=== PATIENT | female | born 1995 ===

== ENCOUNTER 2024-01-09 07:20 | Emergency (ER) | payer OTHER ==
[~2024-01-09] VITALS: Ht 154.9 cm; Wt 59.9 kg
[2024-01-09] MEDS ORDERED: ONDA4ODT MM (07:35)
[2024-01-09] MEDS ORDERED: Ondansetron HCl 2 MG / ML 2ML Vial IV PRN (07:40)
[2024-01-09 08:02] LABS: BASOPHILS ABSOLUTE AUTO 0.16 K/mm3 (0.00-0.23); BASOPHILS PERCENT AUTO 1 % (0-2); EOSINOPHILS ABSOLUTE AUTO 0.08 K/mm3 (0.00-0.68); EOSINOPHILS PERCENT AUTO 1 % (0-6); Hematocrit 43.8 % (33.0-51.0); Hemoglobin 15.8 g/dL (11.5-16.0); IMMATURE GRAN ABSOLUTE AUTO 0.04 K/mm3 (0.00-0.10); IMMATURE GRAN PERCENT AUTO 0 % (0-1); LYMPHOCYTES ABSOLUTE AUTO 2.79 K/mm3 (0.84-5.20); LYMPHOCYTES PERCENT AUTO 24 % (21-46); MONOCYTES ABSOLUTE AUTO 0.96 K/mm3 (0.16-1.47); MONOCYTES PERCENT AUTO 8 % (4-13); Mean Corpuscular HGB 32.6 pg (26.0-34.0); Mean Corpuscular HGB Conc 36.1 g/dL (31.5-36.5); Mean Corpuscular Volume 90 fL (80-100); Mean Platelet Volume 10.3 fL (9.1-12.4); NEUTROPHILS ABSOLUTE AUTO 7.65 K/mm3 (1.96-9.15); NEUTROPHILS PERCENT AUTO 66 % (41-73); Platelet Count 423 K/mm3 (150-400); RDW Coefficient Variation 13.2 % (11.7-14.2); RDW Standard Deviation 43.2 fL (35.1-46.3); Red Blood Cell Count 4.85 M/mm3 (3.80-5.20); White Blood Cell Count 11.68 K/mm3 (4.00-11.30)
[2024-01-09] MEDS ORDERED: Ketorolac Tromethamine 30mg Vial IV ONE (08:05)
[2024-01-09] MEDS ORDERED: NS 1,000 ML IV SCH (08:05)
[2024-01-09 08:08] LABS: Source, Urine Clean Catch
[2024-01-09 08:11] LABS: Appearance, Urine Hazy (Clear); Bilirubin, Urine Neg (Neg); Blood, Urine Neg (Neg); Color, Urine Yellow (P-Yellow); Glucose Qualitative, Urine Neg (Neg); Ketones, Urine 4+ (Neg); Leukocyte Esterase, Urine Neg (Neg); Nitrite, Urine Neg (Neg); Protein, Urine 2+ (Neg); Specific Gravity, Urine 1.025 (1.003-1.022); Urobilinogen, Urine NORM (Normal)
[2024-01-09 08:14] LABS: Albumin, Blood 4.8 g/dL (3.4-5.0); Albumin/Globulin Ratio 1.4 (0.8-1.8); Bilirubin, Direct 0.5 mg/dL (0.0-0.3); Bilirubin, Indirect 3.4 mg/dL (0.1-0.7); Bilirubin, Total 3.9 mg/dL (0.1-1.0); Bun/Creatinine Ratio 20.2 (12.0-20.0); Calcium, Blood 9.5 mg/dL (8.5-10.1); Creatinine, Blood 0.99 mg/dL (0.40-1.00); Globulin, Blood 3.4 g/dL (2.2-4.0); Potassium, Blood 3.2 mmol/L (3.5-5.5); Total Protein, Blood 8.2 g/dL (6.4-8.2)
[2024-01-09 08:25] LABS: Bacteria Mod /hpf; Red Blood Cells, Urine 0-2 /hpf (0-2); Squamous Epithelial Cells Mod /hpf (Few)
[2024-01-09 08:26] LABS: Mucus Heavy (0-Heavy); Transitional Epithelial Cells Rare /hpf (0-Rare)
[2024-01-09 08:27] LABS: Hyaline Casts 0-2 /lpf (0-2)
[2024-01-09] MEDS ORDERED: Famotidine 10 MG/ML 2ML Vial IV ONE (08:30)
[2024-01-09] MEDS ORDERED: Mag Hydrox/AL Hydrox/Simeth 30 ML UDC PO ONE (08:30)
[2024-01-09] MEDS ORDERED: Droperidol 5 mg/2 ml Vial IV ONE (08:45)
[2024-01-09] MEDS ORDERED: Potassium Chloride 20 MEQ TabCR PO ONE (09:45)
== END 2024-01-09 10:51 | disposition home or self-care (01) ==
LOC: ER 07:20
PROVIDERS: Student in an Organized Health Care Education/Training Program
DX: R10.13 Epigastric pain (principal); R11.2 Nausea with vomiting, unspecified; E86.0 Dehydration; E87.1 Hypo-osmolality and hyponatremia; E87.6 Hypokalemia; Z88.0 Allergy status to penicillin; Z88.2 Allergy status to sulfonamides; Z88.1 Allergy status to other antibiotic agents; Z79.899 Other long term (current) drug therapy; J45.909 Unspecified asthma, uncomplicated; K21.9 Gastro-esophageal reflux disease without esophagitis
CPT/HCPCS: 74177; 80048; 80076; 81001; 83735; 84703; 85025; 87077; 87086; 87186; 96361; 96374-59; 96375; 99284-25; A9270; J1790; J1885; J2405; J7030; Q9967